=== PATIENT | male | born 1940 | race Caucasian/White ===

== ENCOUNTER 2020-10-16 14:45 | Inpatient (IN) | payer MEDICARE ==
[~2020-10-16] VITALS: Ht 182.9 cm; Wt 65.5 kg
[2020-10-16 15:00] VITALS: BP 106/61
[2020-10-16] MEDS ORDERED: TRAZ-118 PO (15:56)
[2020-10-16] MEDS ORDERED: BUPR150T21 PO (15:56)
[2020-10-16] MEDS ORDERED: MELA3TAB4 PO (15:56)
[2020-10-16] MEDS ORDERED: RISP0.5T62 PO (15:56)
[2020-10-16] MEDS ORDERED: AMIT50TA PO (15:56)
[2020-10-16] MEDS ORDERED: OLAN2.5T3 PO (15:56)
[2020-10-16] MEDS ORDERED: DRON10CA5 PO (15:56)
[2020-10-16] MEDS ORDERED: ACET325T9 PO (15:56)
[2020-10-16] MEDS ORDERED: LACT1CAP19 PO (15:56)
[2020-10-16] MEDS ORDERED: ONDANSETRON PF 4 MG/2 ML VIAL. IVP PRN (16:45)
[2020-10-16] MEDS: IV NORMAL SALINE 1000ML BAG 1,000 ML IV SCH (16:45)
[2020-10-16] MEDS ORDERED: fentaNYL PF VIAL 100 MCG/2 ML VIAL IVP PRN (16:45)
[2020-10-16] MEDS: VANCOMYCIN 125 MG/2.5 ML ORAL SOLUTION. PO SCH ×2 (17:00→20:38)
[2020-10-16 19:25] VITALS: BP 134/85
[2020-10-16 22:21] LABS: BASO % 0 % (0-3); EOS # 0.3 x10^3/uL (0.0-0.7); EOS % 2 % (0-3); HEMATOCRIT 39.7 % (39.0-53.0); HEMOGLOBIN 13.5 g/dL (13.0-17.5); LYMPH # 0.9 x10^3/uL (1.0-4.8); LYMPH % 7 % (24-48); MEAN CORPUSCULAR HEMOGLOBIN 31 pg (25-35); MEAN CORPUSCULAR HGB CONC 34 g/dL (31-37); MEAN CORPUSCULAR VOLUME 90 fL (79-100); MONO # 1.8 x10^3/uL (0.0-1.1); MONO % 14 % (0-9); NEUT # 9.7 x10^3/uL (1.8-7.7); NEUT % 77 % (31-73); PLATELET COUNT 203 x10^3/uL (140-400); RED BLOOD COUNT 4.41 x10^6/uL (4.30-5.70); RED CELL DISTRIBUTION WIDTH 13.7 % (11.5-14.5); WHITE BLOOD COUNT 12.7 x10^3/uL (4.0-11.0)
[2020-10-16 22:31] LABS: PROTHROMBIN TIME PATIENT 15.6 SEC (11.7-14.0)
[2020-10-16 22:38] LABS: ALBUMIN 2.9 g/dL (3.4-5.0); ALBUMIN/GLOBULIN RATIO 0.7 (1.0-1.7); CALCIUM 8.9 mg/dL (8.5-10.1); CREATININE 0.8 mg/dL (0.7-1.3); GFR 93.5; POTASSIUM 3.9 mmol/L (3.5-5.1); TOTAL PROTEIN 6.8 g/dL (6.4-8.2)
[2020-10-16 23:17] VITALS: BP 109/71
[2020-10-17] VITALS (13 sets, daily range): BP systolic 90–109; BP diastolic 58–67
[2020-10-17] MEDS: IV NORMAL SALINE 1000ML BAG 1,000 ML IV SCH ×2 (05:32→17:13)
[2020-10-17] MEDS ORDERED: HYDROmorphone 2 MG/ML VIAL IVP PRN (06:00)
[2020-10-17] MEDS ORDERED: fentaNYL PF VIAL 100 MCG/2 ML VIAL IVP PRN ×2 (06:00)
[2020-10-17] MEDS ORDERED: MORPHINE SULFATE 2 MG/ML VIAL. IVP PRN (06:00)
[2020-10-17] MEDS ORDERED: PROCHLORPERAZINE 10 MG/2 ML VIAL. IVP PRN (06:00)
[2020-10-17] MEDS ORDERED: IV RINGERS,LACTATED 1000ML 1,000 ML IV SCH (06:00)
[2020-10-17] MEDS ORDERED: LIDOCAINE 2% PF 5 ML VIAL. ONE (08:01)
[2020-10-17] MEDS ORDERED: PROPOFOL 10 MG/ML (20ML) VIAL. IV ONE (08:01)
[2020-10-17] MEDS ORDERED: fentaNYL PF VIAL 100 MCG/2 ML VIAL ONE (08:02)
--- NOTE | 2020-10-17 08:08 | PDOC2 ---
CONSULT Date of Consult Date of Consult DATE: 10/17/20 TIME: 07:47 Reason for Consult Reason for Consult: Right femoral neck fracture Identification/Chief Complaint Chief Complaint Right femoral neck fracture Problems: (1) Fracture of femoral neck, right, closed Source Source: Chart review, Unable to obtain due to (Patient confusion/dementia) History of Present Illness Reason for Visit: 80-year-old Alzheimer's patient who was evaluated after a fall on 10/15/2020 at an outside facility. He was seen and evaluated in outside hospital and found to have a mildly impacted right femoral neck fracture. He was transferred here for surgical intervention. Discussed details with son, Ernie To , who is the patient's DPOA. Patient poor historian and has difficulty focusing during interview. Denies pain elsewhere. Overnight, was attempting to get out of bed. Per report, is being treated for C.Diff colitis, now on finishing doses of PO Vancomycin. Past Medical History Past Medical History Alzheimer's Dementia, Anx/dep, insomnia, dysphagia Past Surgical History Past Surgical History: No pertinent history Family History Family History: Family History Unknown Social History Lives: Longterm Current Medications Current Medications Current Medications Sodium Chloride 1,000 ml @ 75 mls/hr [id number] IV Last administered on 10/17/20at 05:32; Start 10/16/20 at 16:45 Vancomycin HCl (Vancomycin Oral Solution) 125 mg QID PO Last administered on 10/16/20at 20:38; Start 10/16/20 at 17:00 Fentanyl Citrate (Fentanyl 2ml Vial) 50 mcg PRN Q3HRS PRN IVP PAIN; Start 10/16/20 at 16:45 Ondansetron HCl (Zofran) 4 mg PRN Q4HRS PRN IVP NAUSEA/VOMITING; Start 10/16/20 at 16:45 Fentanyl Citrate (Fentanyl 2ml Vial) 25 mcg PRN Q5MIN PRN IVP MILD PAIN 1-3; Start 10/17/20 at 06:00; Stop 10/18/20 at 05:59 Fentanyl Citrate (Fentanyl 2ml Vial) 50 mcg PRN Q5MIN PRN IVP MODERATE PAIN 4- 6; Start 10/17/20 at 06:00; Stop 10/18/20 at 05:59 Morphine Sulfate (Morphine Sulfate) 1 mg PRN Q10MIN PRN IVP SEVERE PAIN 7-10; Start 10/17/20 at 06:00; Stop 10/18/20 at 05:59 Ringer's Solution 1,000 ml @ 30 mls/hr Q24H IV ; Start 10/17/20 at 06:00; Stop 10/17/20 at 17:59 Hydromorphone HCl (Dilaudid) 0.5 mg PRN Q10MIN PRN IVP SEVERE PAIN 7-10, 2nd CHOICE; Start 10/17/20 at 06:00; Stop 10/18/20 at 05:59 Prochlorperazine Edisylate (Compazine) 5 mg PACU PRN PRN IVP NAUSEA, MRX1; Start 10/17/20 at 06:00; Stop 10/18/20 at 05:59 Active Scripts Active Reported Trazodone Hcl 50 Mg Tablet 1 Tab PO QHS PRN Risperidone 0.5 Mg Tablet 0.5 Tab PO BID Bupropion Xl (Bupropion Hcl) 150 Mg Tab.er.24h 1 Tab PO BID Zyprexa (Olanzapine) 2.5 Mg Tablet 1 Tab PO PRN Q2HR PRN Melatonin 3 Mg Tablet 2 Tab PO QHS Culturelle (Lactobacillus Rhamnosus Gg) 1 Each Cap.sprink 1 Cap PO BID 30 Days Dronabinol 10 Mg Capsule 2.5 Mg PO BIDACLD Amitriptyline Hcl 50 Mg Tablet 1 Tab PO QHS Tylenol (Acetaminophen) 325 Mg Tablet 650 Mg PO PRN Q6HRS PRN Allergies Allergies: Coded Allergies: No Known Drug Allergies (Unverified , 10/16/20) ROS Review of System Unable to obtain due to patient confusion Physical Exam General: Alert, No acute distress HEENT: Atraumatic, EOMI, Mucous membr. moist/pink Lungs: Normal air movement Heart: Regular rate Abdomen: Soft, No tenderness Extremities: Normal pulses, No tenderness/swelling Neuro: Cranial nerves 3-12 NL Psych/Mental Status: Other (Confused and unable to focus during interview) MUSCULOSKELETAL: Other (RLE moves ankle and knee and toes. No appreciable shortening appreciated on RLE. Mild discomfort with Hip ROM. Sensation grossly intact to light touch. Brisk Cap refill. LLE, RUE/LUE normal. ) Vitals VITALS Vital Signs Date Time Temp Pulse Resp B/P (MAP) Pulse Ox O2 Delivery O2 Flow Rate FiO2 10/17/20 03:16 98.1 80 18 102/60 (74) 96 Room Air 98.1 Labs Labs Laboratory Tests Test 10/16/20 22:00 10/17/20 06:44 White Blood Count 12.7 x10^3/uL (4.0-11.0) Red Blood Count 4.41 x10^6/uL (4.30-5.70) Hemoglobin 13.5 g/dL (13.0-17.5) Hematocrit 39.7 % (39.0-53.0) Mean Corpuscular Volume 90 fL (79-100) Mean Corpuscular Hemoglobin 31 pg (25-35) Mean Corpuscular Hemoglobin Concent 34 g/dL (31-37) Red Cell Distribution Width 13.7 % (11.5-14.5) Platelet Count 203 x10^3/uL (140-400) Neutrophils (%) (Auto) 77 % (31-73) Lymphocytes (%) (Auto) 7 % (24-48) Monocytes (%) (Auto) 14 % (0-9) Eosinophils (%) (Auto) 2 % (0-3) Basophils (%) (Auto) 0 % (0-3) Neutrophils # (Auto) 9.7 x10^3/uL (1.8-7.7) Lymphocytes # (Auto) 0.9 x10^3/uL (1.0-4.8) Monocytes # (Auto) 1.8 x10^3/uL (0.0-1.1) Eosinophils # (Auto) 0.3 x10^3/uL (0.0-0.7) Basophils # (Auto) 0.0 x10^3/uL (0.0-0.2) Prothrombin Time 15.6 SEC (11.7-14.0) Prothromb Time International Ratio 1.3 (0.8-1.1) Activated Partial Thromboplast Time 34 SEC (24-38) Sodium Level 139 mmol/L (136-145) Potassium Level 3.9 mmol/L (3.5-5.1) Chloride Level 103 mmol/L (98-107) Carbon Dioxide Level 28 mmol/L (21-32) Anion Gap 8 (6-14) Blood Urea Nitrogen 15 mg/dL (8-26) Creatinine 0.8 mg/dL (0.7-1.3) Estimated GFR (Cockcroft-Gault) 93.5 BUN/Creatinine Ratio 19 (6-20) Glucose Level 110 mg/dL (70-99) Calcium Level 8.9 mg/dL (8.5-10.1) Total Bilirubin 1.0 mg/dL (0.2-1.0) Aspartate Amino Transf (AST/SGOT) 21 U/L (15-37) Alanine Aminotransferase (ALT/SGPT) 27 U/L (16-63) Alkaline Phosphatase 143 U/L (46-116) Total Protein 6.8 g/dL (6.4-8.2) Albumin 2.9 g/dL (3.4-5.0) Albumin/Globulin Ratio 0.7 (1.0-1.7) SARS-CoV-2 Antigen (Rapid) Negative (NEGATIVE) Images Images R femur XR shows mild posterior angulation of a subcapital femoral neck fracture with slight impaction of the neck. Assessment/Plan Assessment/Plan Assessment: 80 YO Alzheimer patient with a mechanical fall resulting in a minimally impacted/posterior angulated Right femoral neck fracture. C Diff colitis, resolving per report Plan: NPO NWB RLE Discussed operative and nonoperative treatment options with son/DPOA Ernie To. Risks of surgery discussed included pain, bleeding, infection, damage to surrounding tissues, need for additional procedures, malunion, nonunion, implant failure. He was agreeable to proceed. Plan for OR today for Closed reduction percutaneous pinning for right femoral neck fracture NWJanie RLE Remainder per primary Pineda Yang MD Orthopedic Surgery PINEDA YANG MD Oct 17, 2020 08:08
[2020-10-17] MEDS ORDERED: ONDANSETRON PF 4 MG/2 ML VIAL. ONE (08:22)
[2020-10-17] MEDS ORDERED: DEXAMETHASONE SOD PHOS 4 MG/ML VIAL ONE (08:22)
[2020-10-17] MEDS: VANCOMYCIN 125 MG/2.5 ML ORAL SOLUTION. PO SCH ×4 (08:32→20:27)
[2020-10-17] MEDS ORDERED: ACETAMINOPHEN 325 MG TABLET. PO PRN (09:15)
--- NOTE | 2020-10-17 09:18 | NUR ---
ANGELINA following. Discussed with RN. ANGELINA left voicemail for Priscilla at [facility] to verify if pt came from there. Pt on room air, NPO, rapid COVID-19 negative. Pt having surgery today. ANGELINA will continue to follow. Addendum: 10/17/20 at 1137 by NADIYA ALFARO ANGELINA spoke with Gerber at [facility]. Pt was going to be discharged from [facility] on Tuesday (10/20/20). Pt has been accepted at [facility] in [place], [place]. Contact at [facility], Aline ([phone]) is aware of pt transferring to [facility]. ANGELINA spoke with Aline, they are expecting pt on Tuesday (10/21/20) for assisted. .
[2020-10-17] MEDS ORDERED: PHENYLEPHRINE 10 MG/ML VIAL. ONE (09:38)
[2020-10-17] MEDS ORDERED: BUPIVACAINE MPF 0.5% 30 ML VIAL. ONE (09:54)
[2020-10-17] MEDS: LACTOBACILLUS RHAMNOSUS GG 1 CAPSULE. PO SCH ×2 (10:00→20:24)
[2020-10-17] MEDS: buPROPion SR 150 MG TABLET.SA PO SCH ×2 (10:00→20:24)
[2020-10-17] MEDS: risperiDONE 0.25 MG TABLET. PO SCH ×2 (10:00→20:24)
[2020-10-17] MEDS ORDERED: SEVOFLURANE 61 TO 120 MINUTES. IH ONE (10:08)
--- NOTE | 2020-10-17 10:30 | PN ---
DATE: 10/17/2020 SUBJECTIVE: The patient is a 80-year-old male patient who was transferred yesterday from [facility] as he fell sustaining right femoral neck fracture. He was seen by the orthopedic surgeon as scheduled for definitive surgical treatment today. The patient is very confused. PHYSICAL EXAMINATION: GENERAL: When I examined him this morning, he looked well and was clearly in no apparent respiratory distress. No pallor, jaundice, cyanosis or thyromegaly. No jugular venous distension. No limb edema. VITAL SIGNS: His heart rate was 85, blood pressure was 109/67, temperature 97.8, respiratory rate was 16, and oxygen saturation was 96% on room air. The rest of clinical exam is stable. PLAN: The patient was kept n.p.o. from midnight last night. He continued to be on IV fluid. I will repeat all his lab work tomorrow. Meanwhile, we will continue with pain management, DVT prophylaxis and oral vancomycin, lactobacillus acidophilus. FELIPE CALDWELL MD DR: MICHELLE/giovani JOB#: [id number] / [id number]
[2020-10-17] MEDS ORDERED: DEXTROSE 50% 25 GM / 50ML DISP.SYRIN. IV PRN (11:00)
[2020-10-17] MEDS ORDERED: HYDROcodone/APAP 5/325MG 1 TAB TABLET PO PRN (11:00)
[2020-10-17] MEDS ORDERED: ONDANSETRON PF 4 MG/2 ML VIAL. IVP PRN (11:00)
--- NOTE | 2020-10-17 11:17 | PDOC4 ---
Operative Note Operative Note Preoperative diagnosis: Right femoral neck fracture, closed, impacted Postoperative diagnosis: Right femoral neck fracture, closed, impacted Procedure: Closed reduction and percutaneous skeletal fixation of right femoral fracture, proximal end, neck Surgeon: Pineda Yang MD Anesthesia: General with 20mL 0.5% Marcaine plain Anesthesiologist: Slade Enciso MD Indications: This patient is a 80-year-old male with a minimally displaced right femoral neck fracture after a fall on 10/15/2020. He does have Alzheimer's and his son is the decision maker/DPOA. Nonoperative and operative treatment options were discussed in detail with the DPOA. He wished to proceed with operative treatment. A thorough discussion regarding the risk, benefits, and alternatives was had of the part of the informed consent discussion. Specific risks were discussed included pain, bleeding, infection, damage to surrounding tissues, need for additional procedures, malunion, nonunion, implant failure, DVT, and wound healing problems. Tourniquet: None Complications: None Implants: Wallace 6.5 mm titanium cannulated screw x3. 6.5 x 95 (partially-threaded 20 mm) with titanium washer at the superior anterior and superior posterior aspect. 6.5 x 100 mm (partially-threaded 20 mm) at the inferior neck, no washer. EBL 10 mL Fluids: 500 mL Crystalloid Findings: Right closed impacted femoral neck fracture Procedural details: Patient was identified in the holding area. The correct patient, site, and procedure were identified and marked by myself. Patient was brought to the operating room. General anesthesia was administered. Patient was positioned supine on the operative fracture table and bony prominences were well-padded. The operative extremity was secured in the traction boot and the contralateral lower extremity was placed in the semilithotomy position. C-arm x-ray was used to visualize the fracture in both AP and lateral projections. Incremental traction and internal rotation was applied to an adequate reduction was obtained. The operative extremity was prepped and draped in the standard sterile orthopedic fashion. Procedural pause was performed which included confirmation of 2 g IV Ancef administered within 60 minutes of the incision. The correct patient, site, and procedure were verified as well. All members of the operating room team agreed with surgical pause. Attention was then turned to the surgery itself. The fracture was an impacted femoral neck fracture which was felt to be amenable to treating with screw fixation. This time the C-arm was brought in a small incision with a #15 blade was made on the lateral aspect of the operative hip. Dissection was carried down to the femur through the IT band. A guidepin was placed proximal to the lesser trochanter which served as the inferior screw guidepin. We then used the Eduardo gun to place 2 additional pins, staying within the posterior and anterior aspects of the femoral neck. The outer cortex was drilled for all 3 pins. The lengths were measured using the measuring device. 3 consecutive screws of appropriate length were then placed under fluoroscopic guidance into the femoral head with adequate fixation. Dynamic fluoroscopy verified the sc rews were subchondral, one of the screws appeared to be questionable, so it was exchanged for a shorter screw. Final imaging was obtained in AP and lateral projections. The wound was then thoroughly irrigated with normal saline. Our attention was turned to closure with the fascia/ITB closed with 2-0 Vicryl, and the dermal layer closed with simple interrupted inverted 2-0 Vicryl closures. Skin was closed with milagros. 20 mL of 0.5% Marcaine were injected in the periincisional tissues. Sterile dressing was placed. All counts were correct. The patient was extubated and transferred the PACU in stable condition. Postoperative plan: The patient will be kept inpatient. Weight-bear as tolerated to the operative extremity. 24 hours of empiric antibiotics. Sequential compression devices and aspirin 325mg po qd for DVT prophylaxis ordered. Follow-up should be in approximately 1 to 2 weeks. Ernie, the son, stated it may be best for him to follow up in [place], as he anticipates his father having placement there in a care facility. PINEDA YANG MD Oct 17, 2020 11:17
[2020-10-17] MEDS: DRONABINOL 2.5 MG CAPSULE. PO SCH ×2 (11:30→17:12)
--- NOTE | 2020-10-17 11:40 | RAD ---
Pelvis and right hip 3 views INDICATION: s/p CRPP R hip in PACU Comparison: Right femur x-rays to 11/29/2020 FINDINGS: Interval screw fixation of the impacted right femoral subcapital fracture using 3 cannulated screws. The surgical incision has been closed with skin milagros and there is gas projecting over the lateral right thigh, compatible with recent postoperative changes. No acute osseous abnormality otherwise seen. Alignment appears near anatomic. No hip dislocation. IMPRESSION: Right femoral subcapital fracture status post screw fixation as described. No dislocation. Electronically signed by: Abdoulaye Aguero MD (10/17/2020 11:37 AM) [id number]
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
[2020-10-17] MEDS: ACETAMINOPHEN 500 MG TABLET PO SCH ×2 (14:00→20:24)
[2020-10-17] MEDS: ceFAZolin SODIUM IV Push 1 GM VIAL. IVP SCH ×2 (17:12→20:27)
[2020-10-17] MEDS: AMITRIPTYLINE HCL 25 MG TABLET. PO SCH (20:24)
[2020-10-17] MEDS ORDERED: NON FORMULARY ITEM (Melatonin 2 TAB) PO SCH (21:00)
[2020-10-17] MEDS: OLANZapine 2.5 MG TABLET PO PRN (23:14)
[2020-10-18] MEDS: OLANZapine 2.5 MG TABLET PO PRN ×2 (01:32→19:37)
[2020-10-18] MEDS: ceFAZolin SODIUM IV Push 1 GM VIAL. IVP SCH (02:26)
[2020-10-18 03:00] VITALS: BP 112/68
[2020-10-18] MEDS: HYDROcodone/APAP 5/325MG 1 TAB TABLET PO PRN ×3 (04:16→19:37)
--- NOTE | 2020-10-18 06:57 | PDOC ---
PROGRESS NOTES Date of Service DATE: 10/18/20 TIME: 06:52 Subjective Subjective Problems overnight: Took off dressing overnight. Nursing redressed. Wound benign per report. Objective Vital Signs Vital Signs Date Time Temp Pulse Resp B/P (MAP) Pulse Ox O2 Delivery O2 Flow Rate FiO2 10/18/20 05:16 Room Air 10/18/20 03:00 98.1 87 16 112/68 (83) 98 98.1 10/17/20 11:45 4 Physical Exam Resting comfortably. No actue distress. Nonlabored respirations. Dressing clean, dry, intact to R hip. Brisk CR. Labs Laboratory Tests Test 10/16/20 22:00 10/17/20 06:44 White Blood Count 12.7 x10^3/uL (4.0-11.0) Red Blood Count 4.41 x10^6/uL (4.30-5.70) Hemoglobin 13.5 g/dL (13.0-17.5) Hematocrit 39.7 % (39.0-53.0) Mean Corpuscular Volume 90 fL (79-100) Mean Corpuscular Hemoglobin 31 pg (25-35) Mean Corpuscular Hemoglobin Concent 34 g/dL (31-37) Red Cell Distribution Width 13.7 % (11.5-14.5) Platelet Count 203 x10^3/uL (140-400) Neutrophils (%) (Auto) 77 % (31-73) Lymphocytes (%) (Auto) 7 % (24-48) Monocytes (%) (Auto) 14 % (0-9) Eosinophils (%) (Auto) 2 % (0-3) Basophils (%) (Auto) 0 % (0-3) Neutrophils # (Auto) 9.7 x10^3/uL (1.8-7.7) Lymphocytes # (Auto) 0.9 x10^3/uL (1.0-4.8) Monocytes # (Auto) 1.8 x10^3/uL (0.0-1.1) Eosinophils # (Auto) 0.3 x10^3/uL (0.0-0.7) Basophils # (Auto) 0.0 x10^3/uL (0.0-0.2) Prothrombin Time 15.6 SEC (11.7-14.0) Prothromb Time International Ratio 1.3 (0.8-1.1) Activated Partial Thromboplast Time 34 SEC (24-38) Sodium Level 139 mmol/L (136-145) Potassium Level 3.9 mmol/L (3.5-5.1) Chloride Level 103 mmol/L (98-107) Carbon Dioxide Level 28 mmol/L (21-32) Anion Gap 8 (6-14) Blood Urea Nitrogen 15 mg/dL (8-26) Creatinine 0.8 mg/dL (0.7-1.3) Estimated GFR (Cockcroft-Gault) 93.5 BUN/Creatinine Ratio 19 (6-20) Glucose Level 110 mg/dL (70-99) Calcium Level 8.9 mg/dL (8.5-10.1) Total Bilirubin 1.0 mg/dL (0.2-1.0) Aspartate Amino Transf (AST/SGOT) 21 U/L (15-37) Alanine Aminotransferase (ALT/SGPT) 27 U/L (16-63) Alkaline Phosphatase 143 U/L (46-116) Total Protein 6.8 g/dL (6.4-8.2) Albumin 2.9 g/dL (3.4-5.0) Albumin/Globulin Ratio 0.7 (1.0-1.7) Coronavirus (PCR) Not detected (Not Detected) SARS-CoV-2 Antigen (Rapid) Negative (NEGATIVE) Assessment Assessment 80M with Right fem neck fracture POD#1 s/p CRPP R hip Problems: (1) Fracture of femoral neck, right, closed Plan Plan of Care WBAT RLE Dressing changes PRN by nursing ASA 325mg daily x 6 weeks. PT/OT/SW consults - placement pending. Ortho available for questions. Will follow up in [place], [place] with orthopedist there - to coordinate per son's request. Ortho sign off. Pineda Yang MD Ortho Surgery Justicifation of Admission Dx: Justifications for Admission: Justification of Admission Dx: Yes Fracture: Fracture Problem Qualifiers (1) Fracture of femoral neck, right, closed: Encounter type: subsequent encounter Fracture healing: with routine healing Qualified Codes: S72.001D - Fracture of unspecified part of neck of right femur, subsequent encounter for closed fracture with routine healing PINEDA YANG MD Oct 18, 2020 06:57
[2020-10-18 07:00] VITALS: BP 102/60
[2020-10-18 07:27] LABS: HEMATOCRIT 34.6 % (39.0-53.0); HEMOGLOBIN 11.9 g/dL (13.0-17.5); RED BLOOD COUNT 3.86 x10^6/uL (4.30-5.70); RED CELL DISTRIBUTION WIDTH 13.6 % (11.5-14.5); WHITE BLOOD COUNT 9.2 x10^3/uL (4.0-11.0)
[2020-10-18 07:47] LABS: ALBUMIN 2.6 g/dL (3.4-5.0); ALBUMIN/GLOBULIN RATIO 0.7 (1.0-1.7); CALCIUM 8.6 mg/dL (8.5-10.1); CREATININE 0.8 mg/dL (0.7-1.3); GFR 93.5; POTASSIUM 4.1 mmol/L (3.5-5.1); TOTAL BILIRUBIN 0.6 mg/dL (0.2-1.0); TOTAL PROTEIN 6.1 g/dL (6.4-8.2)
[2020-10-18] MEDS: IV NORMAL SALINE 1000ML BAG 1,000 ML IV SCH ×2 (08:45→22:05)
[2020-10-18] MEDS: buPROPion SR 150 MG TABLET.SA PO SCH ×2 (09:25→20:43)
[2020-10-18] MEDS: LACTOBACILLUS RHAMNOSUS GG 1 CAPSULE. PO SCH ×2 (09:25→20:43)
[2020-10-18] MEDS: ASPIRIN 325 MG TABLET PO SCH (09:25)
[2020-10-18] MEDS: risperiDONE 0.25 MG TABLET. PO SCH ×2 (09:25→20:43)
[2020-10-18] MEDS: ACETAMINOPHEN 500 MG TABLET PO SCH ×3 (09:25→20:43)
[2020-10-18] MEDS: SENNOSIDES/DOCUSATE 8.6/50MG TABLET. PO SCH (09:25)
[2020-10-18] MEDS: VANCOMYCIN 125 MG/2.5 ML ORAL SOLUTION. PO SCH ×4 (09:28→20:43)
--- NOTE | 2020-10-18 10:52 | PN ---
DATE: 10/18/2020 SUBJECTIVE: The patient is resting, slightly propped up in bed, in no apparent respiratory distress. He is confused, impulsive and attempts to get out of the bed. PHYSICAL EXAMINATION: GENERAL: When I examined him, he looked pale, cachectic, but no jaundice, cyanosis or thyromegaly. No jugular venous distension. No limb edema. VITAL SIGNS: His heart rate was 82, blood pressure was 102/60, temperature 97.7, respiratory rate was 18 and oxygen saturation was 99% on room air. HEAD, EYES, EARS, NOSE, AND THROAT: Showed normocephalic, atraumatic. NECK: Supple. HEART: Normal first and second heart sounds. No gallop, rub or murmur. CHEST: Clear to auscultation. No crepitation or rhonchi. ABDOMEN: Distended, soft, nontender. NEUROLOGIC: He is demented without any obvious lateralizing sign. The surgical wound is covered with dressing that is dry and intact. His intake and output are incompletely recorded. LABORATORY DATA: Her lab work this morning showed a serum sodium 141, potassium 4.1, chloride 107, bicarbonate 27, anion gap of 7, BUN 18, creatinine 0.8, estimated GFR was 93 mL per minute, his glucose 123, calcium was 8.6. Total bilirubin, AST, ALT were normal. Alkaline phosphatase slightly elevated. Total protein 6.1, albumin was 2.6. His white cell count was 9200, hemoglobin 11.9, hematocrit 34.6, MCV 90 and platelet count 211,000. His coronavirus by PCR was not detectable. ASSESSMENT: This is a 80-year-old male patient who fell at [facility] with resultant right femoral neck fracture, closed impacted for which he underwent closed reduction and percutaneous skeletal fixation of right femoral fracture, proximal end. Other medical problems include: 1. Clostridium difficile colitis. 2. Severe malnutrition. 3. Dysphagia. PLAN: Obviously continue with pain management. Continue with DVT prophylaxis. Continue with isolation for C. diff colitis. Continue with oral vancomycin 125 mg 4 times a day. Continue with the probiotic. Continue with physical and occupational therapy. FELIPE CALDWELL MD DR: MICHELLE/giovani JOB#: [id number] / [id number]
[2020-10-18 11:00] VITALS: BP 85/53
[2020-10-18] MEDS: DRONABINOL 2.5 MG CAPSULE. PO SCH ×3 (11:30→17:49)
[2020-10-18 15:14] VITALS: BP 118/79
[2020-10-18 19:00] VITALS: BP 90/59
[2020-10-18] MEDS: AMITRIPTYLINE HCL 25 MG TABLET. PO SCH (20:43)
[2020-10-18] MEDS: traZODone 50 MG TABLET. PO PRN (20:43)
[2020-10-18 23:39] VITALS: BP 103/64
[2020-10-19 03:00] VITALS: BP 116/74
[2020-10-19 07:00] VITALS: BP 110/74
[2020-10-19] MEDS: IV NORMAL SALINE 1000ML BAG 1,000 ML IV SCH ×2 (08:25→21:11)
[2020-10-19 11:00] VITALS: BP 104/77
[2020-10-19] MEDS: VANCOMYCIN 125 MG/2.5 ML ORAL SOLUTION. PO SCH ×4 (11:16→21:00)
[2020-10-19] MEDS: ACETAMINOPHEN 500 MG TABLET PO SCH ×3 (11:17→21:11)
[2020-10-19] MEDS: LACTOBACILLUS RHAMNOSUS GG 1 CAPSULE. PO SCH ×2 (11:17→21:11)
[2020-10-19] MEDS: ASPIRIN 325 MG TABLET PO SCH (11:17)
[2020-10-19] MEDS: buPROPion SR 150 MG TABLET.SA PO SCH ×2 (11:17→21:11)
[2020-10-19] MEDS: SENNOSIDES/DOCUSATE 8.6/50MG TABLET. PO SCH (11:17)
[2020-10-19] MEDS: risperiDONE 0.25 MG TABLET. PO SCH ×2 (11:17→21:11)
[2020-10-19] MEDS: DRONABINOL 2.5 MG CAPSULE. PO SCH ×2 (13:46→17:03)
--- NOTE | 2020-10-19 13:57 | NUR ---
Patient spit out medication when given to him
[2020-10-19 19:00] VITALS: BP 141/98
[2020-10-19] MEDS: HYDROcodone/APAP 5/325MG 1 TAB TABLET PO PRN (19:19)
[2020-10-19] MEDS: OLANZapine 2.5 MG TABLET PO PRN (19:19)
[2020-10-19] MEDS: AMITRIPTYLINE HCL 25 MG TABLET. PO SCH (21:11)
[2020-10-19] MEDS: traZODone 50 MG TABLET. PO PRN (21:11)
[2020-10-19 22:54] VITALS: BP 123/77
[2020-10-20 02:58] VITALS: BP 139/83
[2020-10-20 07:40] VITALS: BP 112/75
[2020-10-20] MEDS: ACETAMINOPHEN 500 MG TABLET PO SCH ×3 (07:59→21:12)
[2020-10-20] MEDS: risperiDONE 0.25 MG TABLET. PO SCH ×2 (07:59→21:12)
[2020-10-20] MEDS: buPROPion SR 150 MG TABLET.SA PO SCH ×2 (07:59→21:12)
[2020-10-20] MEDS: ASPIRIN 325 MG TABLET PO SCH (07:59)
[2020-10-20] MEDS: LACTOBACILLUS RHAMNOSUS GG 1 CAPSULE. PO SCH ×2 (07:59→21:12)
[2020-10-20] MEDS: SENNOSIDES/DOCUSATE 8.6/50MG TABLET. PO SCH (07:59)
[2020-10-20] MEDS: VANCOMYCIN 125 MG/2.5 ML ORAL SOLUTION. PO SCH ×4 (08:01→21:35)
--- NOTE | 2020-10-20 09:01 | PN ---
DATE: 10/19/2020 SUBJECTIVE: The patient is resting flat, sleeping comfortably, in no apparent distress. Nursing staff stated he continued to be restless at times, agitated and attempts to get out of the bed, but has generally had an uneventful night. PHYSICAL EXAMINATION: GENERAL: When I examined him this morning, he was resting, almost flat in bed, in no apparent distress, pale. Not jaundiced, cyanosed or thyromegaly. No jugular venous distension. No limb edema. VITAL SIGNS: His heart rate was 85, blood pressure was 110/74, temperature was 98.7, respiratory rate was 16, and oxygen saturation was 92%. HEENT: Showed normocephalic, atraumatic. NECK: Supple. HEART: Showed normal first and second heart sounds. No gallop, rub or murmur. CHEST: Clear to auscultation. No crepitation or rhonchi. ABDOMEN: Scaphoid, soft, nontender. NEUROLOGIC: He is demented, but without any obvious lateralizing sign. His intake over the last 24 hours was 500, output was 400. LABORATORY DATA: Lab work as of yesterday showed a white cell count 9200, hemoglobin 12, hematocrit 35, MCV 90 and platelet count 211,000. His chemistry as of yesterday showed serum sodium 141, potassium 4.1, chloride 107, bicarbonate 27, anion gap of 7, BUN 19, creatinine 0.8, estimated GFR was 93 mL per minute. His glucose 123, calcium was 8.6. Total bilirubin, AST, ALT were normal. Alkaline phosphatase slightly elevated. Total protein 6.1, albumin was 2.6. His coronavirus PCR was negative. ASSESSMENT: 1. Fall at [facility] with resultant right femoral neck fracture, status post closed reduction and percutaneous skeletal fixation of the right femoral fracture. 2. Other medical problems include: A. Clostridium difficile colitis. B. Severe malnutrition. C. Dysphagia. PLAN: To continue with pain management. Continue with DVT prophylaxis. Continue with ____ isolation. Continue with oral vancomycin 125 mg 4 times a day. Continue with probiotic. Continue with physical and occupational therapy. The patient will require IVC obvious placement in a [facility] facility to continue the process of rehabilitation. FELIPE CALDWELL MD DR: MICHELLE/giovani JOB#: [id number] / [id number]
--- NOTE | 2020-10-20 10:30 | PN ---
DATE: 10/20/2020 SUBJECTIVE: The patient is resting, slightly propped up, sleeping comfortably, in no apparent distress. Nursing staff did not voice any concern that he has an uneventful night. OBJECTIVE: GENERAL: On examined him, he looked pale, cachectic, but no jaundice, cyanosis or thyromegaly. No jugular venous distention or limb edema. VITAL SIGNS: His heart rate was 86, blood pressure was 112/75, temperature was 98.4, respiratory rate was 14 and oxygen saturation was 95%. The rest of clinical examination is stable. His intake over the last 24 hours was 1900, no output was recorded. LABORATORY DATA: As of yesterday, his white cell count was 9200, hemoglobin 12, hematocrit 35, MCV 90 and platelet count 211. His chemistry showed his BUN 19, creatinine 0.8. ASSESSMENT: 1. Fall at [facility] with resultant right femoral neck fracture, status post open reduction and internal fixation percutaneous skeletal fixation of the right femoral fracture. 2. Other medical problems include: A. Clostridium difficile colitis. B. Severe malnutrition. C. Dysphagia. D. Dementia. PLAN: To continue with pain management. Continue with DVT prophylaxis. Continue with contact isolation as he is not positive for C. diff toxins. Continue with oral vancomycin at 125 mg 4 times a day as well as probiotic. Continue with physical and occupational therapy. He will be discharged tomorrow to a intermediate facility to continue the process of rehabilitation. FELIPE CALDWELL MD DR: MICHELLE/giovani JOB#: [id number] / [id number]
--- NOTE | 2020-10-20 10:43 | NUR ---
ANGELINA following. Discussed with RN, pt on room air, dysphagia II diet, COVID-19 negative. ANGELINA faxed referral to [facility] (ph: [phone], fax: [phone]). Pt will discharge there tomorrow (10/21/20). ANGELINA will continue to follow. Addendum: 10/20/20 at 1507 by NADIYA ALFARO [facility] will collect pt around noon tomorrow (10/21/20). RN and family notified. Pt's son, Ernie will bring some clothing to the hospital [facility]. Addendum: 10/20/20 at 1531 by NADIYA ALFARO Discharge orders not available to fax.
[2020-10-20] MEDS: DRONABINOL 2.5 MG CAPSULE. PO SCH ×2 (11:10→16:31)
[2020-10-20 11:16] VITALS: BP 135/45
[2020-10-20] MEDS: IV NORMAL SALINE 1000ML BAG 1,000 ML IV SCH (14:05)
[2020-10-20 15:04] VITALS: BP 132/73
[2020-10-20] MEDS: OLANZapine 2.5 MG TABLET PO PRN (16:02)
[2020-10-20 19:00] VITALS: BP 158/93
[2020-10-20] MEDS: traZODone 50 MG TABLET. PO PRN (21:12)
[2020-10-20] MEDS: AMITRIPTYLINE HCL 25 MG TABLET. PO SCH (21:12)
[2020-10-20 23:00] VITALS: BP 161/71
[2020-10-21 03:00] VITALS: BP 130/69
[2020-10-21] MEDS: IV NORMAL SALINE 1000ML BAG 1,000 ML IV SCH (03:51)
[2020-10-21 07:00] VITALS: BP 134/78
[2020-10-21 07:32] LABS: CALCIUM 8.6 mg/dL (8.5-10.1); CREATININE 0.7 mg/dL (0.7-1.3); GFR 109.1; POTASSIUM 3.2 mmol/L (3.5-5.1)
[2020-10-21 07:46] LABS: HEMATOCRIT 40.3 % (39.0-53.0); HEMOGLOBIN 13.6 g/dL (13.0-17.5); RED BLOOD COUNT 4.46 x10^6/uL (4.30-5.70); RED CELL DISTRIBUTION WIDTH 13.5 % (11.5-14.5); WHITE BLOOD COUNT 9.5 x10^3/uL (4.0-11.0)
[2020-10-21] MEDS: ACETAMINOPHEN 500 MG TABLET PO SCH (08:17)
[2020-10-21] MEDS: buPROPion SR 150 MG TABLET.SA PO SCH (08:17)
[2020-10-21] MEDS: SENNOSIDES/DOCUSATE 8.6/50MG TABLET. PO SCH (08:17)
[2020-10-21] MEDS: risperiDONE 0.25 MG TABLET. PO SCH (08:17)
[2020-10-21] MEDS: VANCOMYCIN 125 MG/2.5 ML ORAL SOLUTION. PO SCH (08:17)
[2020-10-21] MEDS: ASPIRIN 325 MG TABLET PO SCH (08:17)
[2020-10-21] MEDS: LACTOBACILLUS RHAMNOSUS GG 1 CAPSULE. PO SCH (08:18)
--- NOTE | 2020-10-21 09:22 | SNU/HH DC ---
DISCHARGE ORDERS DISCHARGE INFORMATION: DISCHARGE DATE: Oct 21, 2020 FINAL DIAGNOSIS Right Femoral Neck Fracture S/P ORIF CONDITION ON DISCHARGE: Stable CODE STATUS: Code Status: Full [facility]: SNF STAY <30 DAYS: Yes POST DISCHARGE ORDERS: ACTIVITY ORDERS: Activity as tolerated DIET AFTER DISCHARGE: Regular TREATMENT/EQUIPMENT ORDERS: Physical Therapy For: Evalulation/Treatment Occupational Therapy For: Evaluation/Treatment DISCHARGE MEDICATIONS: Home Meds Reported Medications Trazodone Hcl (TRAZODONE HCL) 50 Mg Tablet, 1 TAB PO QHS PRN for INSOMNIA, #30 TAB 1 Refill 10/16/20 Risperidone (RISPERIDONE) 0.5 Mg Tablet, 0.5 TAB PO BID for anxiety, #60 TAB 1 Refill 10/16/20 Bupropion Hcl (BUPROPION XL) 150 Mg Tab.er.24h, 1 TAB PO BID for depression, #30 TAB 2 Refills 10/16/20 Olanzapine (ZYPREXA) 2.5 Mg Tablet, 1 TAB PO PRN Q2HR PRN for ANXIETY / AGITATION, #30 TAB 1 Refill 10/16/20 Melatonin (MELATONIN) 3 Mg Tablet, 2 TAB PO QHS for insomnia, #30 TAB 2 Refills 10/16/20 Lactobacillus Rhamnosus Gg (CULTURELLE) 1 Each Cap.sprink, 1 CAP PO BID for probiotic for 30 Days, #60 CAP 0 Refills 10/16/20 Dronabinol (DRONABINOL) 10 Mg Capsule, 2.5 MG PO BIDACLD for appetite, CAP 10/16/20 Amitriptyline Hcl (AMITRIPTYLINE HCL) 50 Mg Tablet, 1 TAB PO QHS for depression/anx, #30 TAB 2 Refills 10/16/20 Acetaminophen (TYLENOL) 325 Mg Tablet, 650 MG PO PRN Q6HRS PRN for PAIN, TAB 10/16/20 FELIPE CALDWELL MD Oct 21, 2020 09:22
--- NOTE | 2020-10-21 09:59 | NUR ---
Discharge instructions and belongings reviewed with patient, report called to [facility] and given to Jovana CAPPS. Patient to be picked up by facility at noon.
[2020-10-21 12:00] VITALS: BP 145/92
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
== END 2020-10-21 18:50 | DRG 480 ==
LOC: 4 NORTH 14:45
PROVIDERS: ADMIT Internal Medicine; ATTEND Internal Medicine
PROC: 0QS634Z Reposition Right Upper Femur with Internal Fixation Device, Percutaneous Approach (ICD-10-PCS; principal; 2020-10-17 09:00)
DX: S72.011A Unspecified intracapsular fracture of right femur, initial encounter for closed fracture (principal); E43 Unspecified severe protein-calorie malnutrition; A04.72 Enterocolitis due to Clostridium difficile, not specified as recurrent; Z68.1 Body mass index [BMI] 19.9 or less, adult; F01.50 Vascular dementia, unspecified severity, without behavioral disturbance, psychotic disturbance, mood disturbance, and anxiety; F02.80 Dementia in other diseases classified elsewhere, unspecified severity, without behavioral disturbance, psychotic disturbance, mood disturbance, and anxiety; F32.9 Major depressive disorder, single episode, unspecified; G30.9 Alzheimer's disease, unspecified; R13.10 Dysphagia, unspecified; Z20.822 Contact with and (suspected) exposure to COVID-19; W01.0XXA Fall on same level from slipping, tripping and stumbling without subsequent striking against object, initial encounter; Y93.89 Activity, other specified; Y92.89 Other specified places as the place of occurrence of the external cause; Y99.8 Other external cause status
CPT/HCPCS: 36415; 73502; 76000; 80048; 80053; 85025; 85027; 85610; 85730; 87426; C1713; C1769; C1887; J0690; J1100; J2370; J2405; J2704; J3010; J3490; J7030; U0003; 97110-GP; 97116-GP; 97530-GO; 97530-GP; 97535-GO; G0378; Q0167